=== PATIENT | female | born 1955 | race Asian ===

== ENCOUNTER 2021-03-03 08:03 | Emergency (ER) | payer OTHER, BC ==
[~2021-03-03] VITALS: Ht 154.9 cm; Wt 58.1 kg
[2021-03-03 08:15] VITALS: BP 140/76
--- NOTE | 2021-03-03 09:37 | NUR ---
Patient discharged to home in stable condition. Written and verbal after care instructions given. Patient verbalizes understanding of instruction.
== END 2021-03-03 09:37 | disposition home or self-care (01) ==
LOC: ER 08:21
DX: S66.912A Strain of unspecified muscle, fascia and tendon at wrist and hand level, left hand, initial encounter (principal); S66.911A Strain of unspecified muscle, fascia and tendon at wrist and hand level, right hand, initial encounter; Z91.040 Latex allergy status; Z88.8 Allergy status to other drugs, medicaments and biological substances; W19.XXXA Unspecified fall, initial encounter; Y93.89 Activity, other specified; Y92.69 Other specified industrial and construction area as the place of occurrence of the external cause; Y99.0 Civilian activity done for income or pay
CPT/HCPCS: 73110